=== PATIENT | female | born 1995 | race Caucasian/White ===

== ENCOUNTER 2019-12-22 02:17 | Outpatient (CLI) | payer OTHER ==
[~2019-12-22] VITALS: Ht 160 cm; Wt 72.7 kg
== END 2019-12-22 04:00 | disposition home or self-care (01) ==
LOC: LDOP 02:17
PROVIDERS: ATTEND Obstetrics & Gynecology
DX: O26.893 Other specified pregnancy related conditions, third trimester (principal); R10.9 Unspecified abdominal pain; Z3A.38 38 weeks gestation of pregnancy
CPT/HCPCS: 59025

== ENCOUNTER → 2020-01-12 | Outpatient (CLI) | payer OTHER | END | disposition home or self-care (01) | LOC: STAR 11:48 | PROVIDERS: ATTEND Obstetrics & Gynecology | DX: Z01.812 Encounter for preprocedural laboratory examination (principal); Z20.828 Contact with and (suspected) exposure to other viral communicable diseases | CPT/HCPCS: 36415; 87635 ==

== ENCOUNTER 2020-01-18 23:48 | Outpatient (CLI) | payer OTHER ==
[~2020-01-18] VITALS: Ht 160 cm; Wt 74.5 kg
[2020-01-18 23:54] VITALS: BP 111/65
[2020-01-19] MEDS ORDERED: PREN1TAB60 PO (14:50)
== END 2020-01-19 00:55 | disposition home or self-care (01) ==
LOC: LDOP 23:48
PROVIDERS: ATTEND Obstetrics & Gynecology
DX: O42.92 Full-term premature rupture of membranes, unspecified as to length of time between rupture and onset of labor (principal); Z3A.41 41 weeks gestation of pregnancy
CPT/HCPCS: 59025; 89060; Q0114